=== PATIENT | male | born 1980 | race Two or more races ===

== ENCOUNTER 2018-07-29 23:21 | Emergency (ER) | payer OTHER ==
[2018-07-29 23:28] VITALS: TEMP 98.6; BMI 30.8
--- NOTE | 2018-07-30 00:35 | PDOC ---
History of Present Illness - General Chief Complaint: Blood Sugar Problem Stated Complaint: HIGH BLOOD PRESURE - History of Present Illness Initial Comments: The pt is a 38M w/ a history of HTN, HLD, and T2DM who presents for evaluation for elevated BG at home. The patient was at a democrat this evening where he reports eating more than usual. He then checked his BG and it was in the 250s so he decided to come in for evaluation. He denies any other symptoms or complaints. 07/30/18 00:44 Past History - Past Medical History COPD: No Diabetes: Yes HTN: Yes Hypercholesterolemia: Yes - Suicide/Smoking/Psychosocial Hx Smoking History: Never smoked Hx Alcohol Use: No Drug/Substance Use Hx: No Review of Systems - Review of Systems Able to Perform ROS?: Yes Comments:: GENERAL/CONSTITUTIONAL: No fever or chills. No weakness HEAD, EYES, EARS, NOSE AND THROAT: No change in vision. No ear pain or discharge. No sore throat CARDIOVASCULAR: No chest pain or shortness of breath RESPIRATORY: Denies cough, hemoptysis GASTROINTESTINAL: No nausea, vomiting, diarrhea or constipation GENITOURINARY: No dysuria, frequency, or change in urination MUSCULOSKELETAL: No joint or muscle swelling or pain. No neck or back pain SKIN: No rash NEUROLOGIC: No headache, vertigo, loss of consciousness, or change in strength/ sensation ENDOCRINE: No increased thirst. No abnormal weight change HEMATOLOGIC/LYMPHATIC: No anemia, easy bleeding, or history of blood clots ALLERGIC/IMMUNOLOGIC: No hives or skin allergy 07/30/18 00:45 Is the patient limited Macedonian proficient: No *Physical Exam - Vital Signs Last Vital Signs Temp Pulse Resp BP Pulse Ox 98.6 F 88 20 116/75 98 07/29/18 23:23 07/29/18 23:23 07/29/18 23:23 07/29/18 23:23 07/29/18 23:23 - Physical Exam Comments: GENERAL: Awake, alert, and fully oriented, in no acute distress HEAD: No signs of trauma, normocephalic, atraumatic EYES: PERRLA, EOMI, sclera anicteric, conjunctiva clear ENT: Hearing grossly normal, nares patent, oropharynx clear without exudates. Moist mucosa LUNGS: No distress, speaks full sentences, clear to auscultation bilaterally HEART: Regular rate and rhythm, normal S1 and S2, no murmurs appreciated, peripheral pulses normal and equal bilaterally ABDOMEN: Soft, nontender, normoactive bowel sounds. No guarding, no rebound EXTREMITIES : Normal inspection, Normal range of motion, no edema. No clubbing or cyanosis NEUROLOGICAL: Cranial nerves II through XII grossly intact. Normal speech, no focal sensorimotor deficits SKIN: Warm, Dry, normal turgor, no rashes or lesions noted 07/30/18 00:46 Moderate Sedation - Procedure Monitoring Vital Signs: Procedure Monitoring Vital Signs Temperature 98.6 F 07/29/18 23:23 Pulse Rate 88 07/29/18 23:23 Respiratory Rate 20 07/29/18 23:23 Blood Pressure 116/75 07/29/18 23:23 O2 Sat by Pulse Oximetry (%) 98 07/29/18 23:23 Medical Decision Making - Medical Decision Making The pt is a 38M w/ a history of HTN, HLD, T2DM (metformin) who presents for evaluation of hyperglycemia s/p democrat to 250s ED Course BGM 07/30/18 00:46 BG in ED 113 Patient asymptomatic Plan for D/C w/ PCP f/u Discharge instructions and return precautions given Patient in agreement and verbalized understanding Dispo: home *DC/Admit/Observation/Transfer Diagnosis at time of Disposition: Hyperglycemia - Discharge Dispostion Disposition: HOME Condition at time of disposition: Stable Decision to Admit order: No - Referrals Referrals: Dr. Madhu [Other] - Patient Instructions Printed Discharge Instructions: DI for Hyperglycemia -- Adult Additional Instructions: You were seen in the Emergency Department for evaluation of hyperglycemia. Review the handout provided at discharge. Follow up with your primary care provider. Return to the Emergency Department if you develop fevers/chill, increased thirst or urination, burning with urination, or any new/concerning symptoms. - Post Discharge Activity
--- NOTE | 2018-07-30 00:38 | PDOC ---
Attending Attestation - HPI HPI: 07/30/18 01:27 The patient is a 38 year old male with a PMH of HTN, HLD, and T2DM who presents with elevated blood glucose. Patient states he was at a [employer] today and was not eating his usual diet. Patient went home and checked his blood glucose which was found to be in the 250s. Patient denies any cp, sob, fever, chills, urinary symptoms, N/V/D/C. - Physicial Exam PE: 07/30/18 01:31 ADULT PHYSICAL EXAM Constitutional: Awake, alert, oriented. No acute distress. Cardiovascular: Regular rate. Regular rhythm. S1, S2 regular. Distal pulses are 2+ and symmetric. Pulmonary/Chest: No evidence of respiratory distress. Clear to auscultation bilaterally No wheezing, rales or rhonchi. Abdominal: Soft and non-distended. There is no tenderness. No rebound, guarding or rigidity. No organomegaly. No palpable masses. Good bowel sounds. Musculoskeletal: No edema. No cyanosis. No clubbing. Full range of motion in all extremities. Nocalf tenderness. Radial/pedal pulses are intact and 2+ bilaterally Skin: Skin is warm and dry. No petechiae. No purpura. Neurological: Alert and oriented to person, place, and time. Cranial nerves II -XII are grossly intact. Normal speech. Strength is grossly symmetric. No sensory deficits. Psychiatric: Good eye contact. Normal interaction, affect and behavior. <Chrystal Hoffman - Last Filed: 07/30/18 01:27> - Resident Resident Name: Koby Archibald - ED Attending Attestation I have performed the following: I have examined & evaluated the patient, The case was reviewed & discussed with the resident, I agree w/resident's findings & plan, Exceptions are as noted - Medical Decision Making 07/30/18 00:38 I, Dr. Radha Arauz, DO, attest that this document has been prepared under my direction and personally reviewed by me in its entirety. I further attest, that it accurately reflects all work, treatment, procedures and medical decision -making performed by me. 07/30/18 01:23 a/p: 38yo male with hx of DM who ate rice and oxtail at a [employer] earlier -no complaints -hx of dm on metformin -checked glucose and it was 250 -states he felt nervous bc glucose was high and came in -nontoxic appearing -will check bg -drinking large bottle of water in the Ed 07/30/18 01:45 glucose 113 07/30/18 01:46 pt ambulatory with a steady gait pt drinking water stable for dc to home <Radha Arauz - Last Filed: 07/30/18 01:46> *DC/Admit/Observation/Transfer <Chrystal Hoffman - Last Filed: 07/30/18 01:27> - Discharge Dispostion Decision to Admit order: No <Radha Arauz - Last Filed: 07/30/18 01:46> Diagnosis at time of Disposition: Hyperglycemia - Discharge Dispostion Disposition: HOME Condition at time of disposition: Stable - Referrals Referrals: Dr. Madhu [Other] - Patient Instructions Printed Discharge Instructions: DI for Hyperglycemia -- Adult Additional Instructions: You were seen in the Emergency Department for evaluation of hyperglycemia. Review the handout provided at discharge. Follow up with your primary care provider. Return to the Emergency Department if you develop fevers/chill, increased thirst or urination, burning with urination, or any new/concerning symptoms. - Post Discharge Activity
[2018-07-30 01:51] VITALS: BP 112/68; PULSE 78
== END 2018-07-30 01:49 | disposition home or self-care (01) ==
LOC: JER 23:21
DX: E11.65 Type 2 diabetes mellitus with hyperglycemia (principal); Z79.84 Long term (current) use of oral hypoglycemic drugs; I10 Essential (primary) hypertension; E78.00 Pure hypercholesterolemia, unspecified
CPT/HCPCS: 82962; 99282-25

== ENCOUNTER 2020-08-01 09:18 | Emergency (ER) | payer OTHER ==
[2020-08-01 09:28] VITALS: TEMP 98.2; BMI 33.3
[2020-08-01] MEDS ORDERED: IBUPROFEN 600 MG TABLET (FP) PO ONE ×2 (11:11→11:47)
[2020-08-01] MEDS ORDERED: METOPROLOL TARTRATE 50 MG TABLET (FP) PO ONE (11:13)
[2020-08-01] MEDS ORDERED: amLODIPine BESYLATE 10 MG TABLET (FP) PO ONE (11:13)
[2020-08-01] MEDS ORDERED: LISINOPRIL 20 MG TABLET PO ONE (11:14)
[2020-08-01] MEDS ORDERED: amLODIPine BESYLATE 5 MG TABLET (FP) ONE (11:47)
[2020-08-01] MEDS ORDERED: LISINOPRIL 20 MG TABLET ONE (11:47)
[2020-08-01] MEDS ORDERED: METOPROLOL TARTRATE 50 MG TABLET (FP) ONE (11:47)
[2020-08-01 12:01] VITALS: PULSE 72
[2020-08-01 13:37] VITALS: BP 154/111
== END 2020-08-01 13:34 | disposition home or self-care (01) ==
LOC: JER 09:18
DX: S80.911A Unspecified superficial injury of right knee, initial encounter (principal)
CPT/HCPCS: 73562-TC-RT-FY; 99285-25

== ENCOUNTER 2021-02-06 08:38 | Emergency (ER) | payer OTHER ==
[2021-02-06 08:45] VITALS: BP 136/81; PULSE 73; TEMP 97; BMI 31.6
[2021-02-06] MEDS ORDERED: KETOROLAC TROMETHAMINE 60 MG/2 ML VIAL IM ONE (09:31)
[2021-02-06] MEDS ORDERED: LIDOCAINE 5% TOPICAL PATCH TP ONE (09:32)
[2021-02-06] MEDS ORDERED: ACETAMINOPHEN 325 MG TABLET (FP) PO ONE (09:32)
[2021-02-06] MEDS ORDERED: METHOCARBAMOL 500 MG TABLET PO ONE (09:32)
[2021-02-06] MEDS ORDERED: ACETAMINOPHEN 325 MG TABLET (FP) ONE (10:33)
[2021-02-06] MEDS ORDERED: LIDOCAINE 5% TOPICAL PATCH ONE (10:33)
[2021-02-06] MEDS ORDERED: KETOROLAC TROMETHAMINE 30 MG/1 ML VIAL ONE (10:33)
[2021-02-06] MEDS ORDERED: METHOCARBAMOL 500 MG TABLET ONE (10:33)
[2021-02-06] MEDS ORDERED: LIDOCAINE PATCH REMOVAL MC SCH (22:00)
== END 2021-02-06 14:38 | disposition home or self-care (01) ==
LOC: JERFT 08:38
DX: M54.5 Low back pain (principal); V49.40XA Driver injured in collision with unspecified motor vehicles in traffic accident, initial encounter
CPT/HCPCS: 72100-TC-FY; 99283-25

== ENCOUNTER 2023-02-14 22:20 | Observation (INO) | payer SELFPAY ==
[2023-02-14] MEDS ORDERED: LISINOPRIL 20 MG TABLET PO ONE (22:55)
[2023-02-14] MEDS ORDERED: METOPROLOL TARTRATE 50 MG TABLET (FP) PO ONE (22:55)
[2023-02-14] MEDS ORDERED: SODIUM CHLORIDE 0.9% 500 ML INFUS.BAG IV ONE (22:59)
[2023-02-14] MEDS ORDERED: amLODIPine BESYLATE 5 MG TABLET (FP) PO ONE (22:59)
[2023-02-14] MEDS ORDERED: LISINOPRIL 20 MG TABLET ONE (23:21)
[2023-02-14] MEDS ORDERED: METOPROLOL TARTRATE 25 MG TABLET (FP) ONE (23:21)
[2023-02-14] MEDS ORDERED: amLODIPine BESYLATE 5 MG TABLET (FP) ONE (23:21)
[2023-02-14 23:39] LABS: BASO % 0.7 % (0-2.0); EOS % 1.8 % (0-4.5); HEMATOCRIT 38.9 % (35.4-49); HEMOGLOBIN 13.3 GM/dL (11.7-16.9); LYMPH % 30.9 % (8-40); MCH 26.5 pg (25.7-33.7); MCHC 34.3 g/dl (32.0-35.9); MEAN CELL VOLUME 77.3 fl (80-96); MEAN PLT VOLUME 9.3 fl (7.5-11.1); MONO % 5.4 % (3.8-10.2); NEUT % 61.2 % (42.8-82.8); PLATELET COUNT 158 10^3/uL (134-434); RBC 5.03 M/mm3 (4.00-5.60); RDW 13.8 % (11.9-15.9); WHITE BLOOD COUNT 4.9 K/mm3 (4.0-10.0)
[2023-02-14 23:46] LABS: INR 1.05 (0.83-1.09); PROTHROMBIN TIME (PATIENT) 12.2 SEC (9.7-13.0)
[2023-02-14 23:48] LABS: ACTIVATED PTT 32.2 SECONDS (25.2-36.5)
[2023-02-14 23:59] LABS: ALBUMIN 3.9 g/dl (3.4-5.0); CALCIUM 9.4 mg/dL (8.5-10.1)
[2023-02-15 00:02] LABS: CREATININE 1.2 mg/dL (0.55-1.3)
[2023-02-15 00:03] LABS: BILIRUBIN,TOTAL 0.3 mg/dL (0.2-1); TOT PROT 7.5 g/dl (6.4-8.2)
[2023-02-15] MEDS ORDERED: INSULIN (NOVOLOG MIX 70/30) 100 UNITS/ML MDV SQ ONE ×2 (00:10→01:15)
[2023-02-15 04:32] VITALS: BMI 31.6
[2023-02-15 04:34] VITALS: RESP 20
[2023-02-15] MEDS: INSULIN SLIDING SCALE (NOVOLOG) 1 VIAL SQ SCH ×2 (06:33→12:28)
[2023-02-15 08:45] VITALS: BP 124/72; PULSE 72; TEMP 98
[2023-02-15 09:31] LABS: HEMATOCRIT 38.5 % (35.4-49); HEMOGLOBIN 13.1 GM/dL (11.7-16.9); MCH 26.5 pg (25.7-33.7); MCHC 34.1 g/dl (32.0-35.9); MEAN CELL VOLUME 77.5 fl (80-96); MEAN PLT VOLUME 9.6 fl (7.5-11.1); PLATELET COUNT 152 10^3/uL (134-434); RBC 4.96 M/mm3 (4.00-5.60); RDW 13.9 % (11.9-15.9); WHITE BLOOD COUNT 4.1 K/mm3 (4.0-10.0)
[2023-02-15 09:45] LABS: URINE APPEARANCE CLEAR; URINE BILIRUBIN NEGATIVE (NEGATIVE); URINE COLOR YELLOW; URINE GLUCOSE (UA) 3+ (NEGATIVE); URINE KETONE NEGATIVE (NEGATIVE); URINE LEUK ESTERASE NEGATIVE (NEGATIVE); URINE NITRITE NEGATIVE (NEGATIVE); URINE PROTEIN NEGATIVE (NEGATIVE); URINE UROBILINOGEN 0.2 mg/dL (0.2-1.0)
[2023-02-15 09:50] LABS: POTASSIUM 3.8 mmol/L (3.5-5.1)
[2023-02-15 09:53] LABS: ALBUMIN 3.8 g/dl (3.4-5.0); BLOOD UREA NITROGEN 8.9 mg/dL (7-18); CALCIUM 8.7 mg/dL (8.5-10.1); MAGNESIUM 1.9 mg/dL (1.8-2.4)
[2023-02-15 09:57] LABS: PHOSPHOROUS 2.9 mg/dL (2.5-4.9); TOT PROT 7.1 g/dl (6.4-8.2)
[2023-02-15 09:59] LABS: BILIRUBIN,TOTAL 0.6 mg/dL (0.2-1)
[2023-02-15] MEDS ORDERED: ENOXAPARIN NA (PORCINE) 40 MG/0.4 ML DISP.SYRIN SQ SCH (10:00)
[2023-02-15] MEDS ORDERED: METOPROLOL TARTRATE 50 MG TABLET (FP) PO SCH (10:00)
[2023-02-15] MEDS ORDERED: metFORMIN HCL 500 MG TABLET (FP) PO ONE (10:00)
[2023-02-15] MEDS ORDERED: LISINOPRIL 20 MG TABLET PO SCH (10:00)
[2023-02-15] MEDS ORDERED: amLODIPine BESYLATE 10 MG TABLET (FP) PO SCH (10:00)
[2023-02-15] MEDS ORDERED: metFORMIN HCL 500 MG TABLET (FP) PO SCH (16:30)
== END 2023-02-15 14:05 | disposition home or self-care (01) ==
LOC: JER 22:20 → JERBED 02-15 00:34 → J8W 02-15 04:17
PROVIDERS: ADMIT Internal Medicine; ATTEND Nurse Practitioner Acute Care
PROC: 3E023GC Introduction of Other Therapeutic Substance into Muscle, Percutaneous Approach (ICD-10-PCS; principal; 2023-02-15)
PROC: 3E013VG Introduction of Insulin into Subcutaneous Tissue, Percutaneous Approach (ICD-10-PCS; 2023-02-15)
PROC: 3E0337Z Introduction of Electrolytic and Water Balance Substance into Peripheral Vein, Percutaneous Approach (ICD-10-PCS; 2023-02-15)
DX: I16.0 Hypertensive urgency (principal); E11.9 Type 2 diabetes mellitus without complications; E78.5 Hyperlipidemia, unspecified; R42 Dizziness and giddiness; H53.8 Other visual disturbances; E66.9 Obesity, unspecified; Z68.31 Body mass index [BMI] 31.0-31.9, adult; Z71.3 Dietary counseling and surveillance; Z29.8 Encounter for other specified prophylactic measures
CPT/HCPCS: 36415; 70450-TC; 80053; 80061; 81003; 82962; 83735; 84100; 84443; 84484; 85025; 85027; 85610; 85730; 87086; 93005; 93010; 99285-25; G0378

== ENCOUNTER 2024-09-08 16:23 | Emergency (ER) | payer OTHER ==
[2024-09-08 16:42] VITALS: BP 116/68; PULSE 80; RESP 18; TEMP 98.2; BMI 29.6
[2024-09-08] MEDS ORDERED: ACETAMINOPHEN 500 MG TABLET (FP) ONE (19:05)
[2024-09-08] MEDS ORDERED: LIDOCAINE 4% PATCH TP ONE (19:05)
[2024-09-08] MEDS: LIDOCAINE 5% TOPICAL PATCH TP ONE (19:09)
[2024-09-08] MEDS: ACETAMINOPHEN 500 MG TABLET (FP) PO ONE (19:09)
[2024-09-08 20:27] LABS: PH,URINE 6.5 (5.0-8.0); URINE APPEARANCE CLEAR; URINE BILIRUBIN NEGATIVE (NEGATIVE); URINE COLOR YELLOW; URINE GLUCOSE (UA) NEGATIVE (NEGATIVE); URINE KETONE TRACE (NEGATIVE); URINE LEUK ESTERASE NEGATIVE (NEGATIVE); URINE NITRITE NEGATIVE (NEGATIVE); URINE PROTEIN NEGATIVE (NEGATIVE)
[2024-09-09] MEDS ORDERED: LIDOCAINE PATCH REMOVAL MC SCH (07:00)
== END 2024-09-08 21:58 | disposition home or self-care (01) ==
LOC: JERFT 16:23
DX: S30.0XXA Contusion of lower back and pelvis, initial encounter (principal); V43.52XA Car driver injured in collision with other type car in traffic accident, initial encounter; Y92.410 Unspecified street and highway as the place of occurrence of the external cause
CPT/HCPCS: 72100-TC-FY; 81003; 87086; 99284-25